=== PATIENT | female | born 1995 | race Caucasian/White ===

== ENCOUNTER 2019-06-16 19:44 | Emergency (ER) | payer OTHER ==
--- NOTE | 2019-06-16 20:09 | ER Document Report ---
ED Medical Screen (RME) - General Chief Complaint: Numbness Stated Complaint: NUMBNESS RIGHT SIDE, DIZZINESS, RASH Time Seen by Provider: 06/16/19 20:06 Primary Care Provider: GARCIA ANDERSON MD [Primary Care Provider] - Follow up as needed Mode of Arrival: Ambulatory Information source: Patient Notes: 23-year-old female presents to ED for complaint of numbness to her right arm and leg and side for the last 4 days intermittently. She states she is still able to walk and do everything is just the sometimes it feels numb and sometimes it feels like her legs going out from under her. She states she also has had stiffness to both sides of her jaw. She states she developed a red flat rash to it is painful to be touched to the back of both legs yesterday. She states today when she was driving home she had a period of dizziness where she had to pull up hand and then she was okay when she was able to drive the rest the way home. She states she does not have any past medical history of anything she has had surgery for ganglion cyst. She denies smoking drinking or doing any drugs. 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 I have greeted and performed a rapid initial assessment of this patient. A comprehensive ED assessment and evaluation of the patient, analysis of test results and completion of medical decision making process will be conducted by an additional ED providers. TRAVEL OUTSIDE OF THE [place] IN LAST 30 DAYS: No - Related Data Allergies/Adverse Reactions: No Known Allergies Allergy (Unverified 06/16/19 19:48) Physical Exam - Vital signs Vitals: Temp Pulse Resp BP Pulse Ox 98.5 F 87 20 138/80 H 100 06/16/19 19:49 06/16/19 19:49 06/16/19 19:49 06/16/19 19:49 06/16/19 19:49 Course - Vital Signs Vital signs: Temp Pulse Resp BP Pulse Ox 98.5 F 87 20 138/80 H 100 06/16/19 19:49 06/16/19 19:49 06/16/19 19:49 06/16/19 19:49 06/16/19 19:49 Doctor's Discharge - Discharge Referrals: GARCIA ANDERSON MD [Primary Care Provider] - Follow up as needed
[2019-06-16 20:29] LABS: APPEARANCE,URINE CLEAR; BILIRUBIN,URINE NEGATIVE (NEGATIVE); COLOR,URINE YELLOW; GLUCOSE, URINE NEGATIVE (NEGATIVE); KETONES,URINE NEGATIVE (NEGATIVE); LEUKOCYTE ESTERASE,URINE NEGATIVE (NEGATIVE); NITRITE,URINE NEGATIVE (NEGATIVE); PROTEIN,URINE NEGATIVE (NEGATIVE); URINE SPECIFIC GRAVITY 1.021; UROBILINOGEN,URINE NEGATIVE mg/dL (<2.0)
--- NOTE | 2019-06-16 20:34 | ER Document Report ---
ED General - General Mode of Arrival: Ambulatory TRAVEL OUTSIDE OF THE [place] IN LAST 30 DAYS: No <RITA ROTHMAN - Last Filed: 06/17/19 06:51> <KEYLA VALLE - Last Filed: 06/18/19 02:01> - General Chief Complaint: Numbness Stated Complaint: NUMBNESS RIGHT SIDE, DIZZINESS, RASH Time Seen by Provider: 06/16/19 20:06 Primary Care Provider: GARCIA ANDERSON MD [ACTIVE STAFF] - Follow up as needed Notes: Patient is a 23-year-old female that comes emergency department for chief complaint of symptoms that have been going on for the past 4 days, she states that she is getting intermittent tingling sensations in her right hand and sometimes in her right leg and foot, she also states that when she was driving home from work she suddenly felt lightheaded and her vision got really blurry, this did subside. She did not get diaphoresis, chest pain, shortness of breath, nausea or vomiting. She also states that over the past day she has broken out into a reddish rash on the back of her lower legs that is not itchy but is slig htly tender to touch. Denies headache, fever, history of the same. She takes no daily medications. Only past medical history reported is right ganglion cyst removal. She denies smoking, alcohol, recreational drugs. Significant other at bedside. (RITA ROTHMAN) - Related Data Allergies/Adverse Reactions: No Known Allergies Allergy (Unverified 06/16/19 19:48) Past Medical History - General Information source: Patient - Social History Smoking Status: Never Smoker Chew tobacco use (# tins/day): No Frequency of alcohol use: None Drug Abuse: None Lives with: Family Family History: Reviewed & Not Pertinent Patient has suicidal ideation: No Patient has homicidal ideation: No - Medical History Medical History: Negative Renal/ Medical History: Denies: Hx Peritoneal Dialysis Past Surgical History: Reports: Hx Orthopedic Surgery - Right ganglion cyst kimmy gaudencio <RITA ROTHMAN - Last Filed: 06/17/19 06:51> Review of Systems - Review of Systems Constitutional: See HPI EENT: No symptoms reported Cardiovascular: See HPI Respiratory: No symptoms reported Gastrointestinal: No symptoms reported Genitourinary: No symptoms reported Female Genitourinary: No symptoms reported Musculoskeletal: No symptoms reported Skin: See HPI Hematologic/Lymphatic: No symptoms reported Neurological/Psychological: See HPI <RITA ROTHMAN - Last Filed: 06/17/19 06:51> Physical Exam <RITA ROTHMAN - Last Filed: 06/17/19 06:51> - Vital signs Vitals: Temp Pulse Resp BP Pulse Ox 98.5 F 87 20 138/80 H 100 06/16/19 19:49 06/16/19 19:49 06/16/19 19:49 06/16/19 19:49 06/16/19 19:49 - Notes Notes: GENERAL: Alert, interacts well. No acute distress. HEAD: Normocephalic, atraumatic. EYES: Pupils equal, round, and reactive to light. Extraocular movements intact. ENT: Oral mucosa moist, tongue midline. Oropharynx unremarkable. Airway patent. Nares patent, no nasal septal hematoma NECK: Full range of motion. Supple. Trachea midline. LUNGS: Clear to auscultation bilaterally, no wheezes, rales, or rhonchi. No respiratory distress. HEART: Regular rate and rhythm. No murmur ABDOMEN: Soft, non-tender. Non-distended. Bowel sounds present in all 4 quadrants. GENITOURINARY: Deferred EXTREMITIES: Moves all 4 extremities spontaneously. No edema, normal radial and dorsalis pedis pulses bilaterally. No cyanosis. BACK: no cervical, thoracic, lumbar midline tenderness. No saddle anesthesia, normal distal neurovascular exam. Moves all extremities in full range of motion. NEUROLOGICAL: Alert and oriented x3. Normal speech. 5 out of 5 strength in all extremities. Distal sensation intact. Cranial nerves II through XII grossly intact. PSYCH: Normal affect, normal mood. SKIN: Symmetrical erythematous macular rash over the posterior ankles extending slightly of the legs. No bulla, pustules, sloughing, induration, fluctuance. Minimally tender only by report but does not appear to be tender. (RITA ROTHMAN) Course - Laboratory Result Diagrams: 06/16/19 20:40 06/16/19 20:40 <RITA ROTHMAN - Last Filed: 06/17/19 06:51> - Laboratory Result Diagrams: 06/16/19 20:40 06/16/19 20:40 <KEYLA VALLE - Last Filed: 06/18/19 02:01> - Re-evaluation Re-evalutation: Patient has a confusing presentation. She is smiling, talkative, well- appearing. She has no neurological deficit on my exam. She has no current paresthesias. As result I do not suspect brain lesion, intracranial hemorrhage, or even something wrong with the neck causing compression. However she does have a symmetrical rash that is erythematous and mildly tender over the posterio r leg distally. There are no papules, it is not itchy, no pustules, no severe tenderness, no swelling of the leg otherwise. Redness is there but it is not shiny erythema. In addition to this patient states she felt like she was passing out earlier. EKG unremarkable with unremarkable SC interval and sinus rhythm. No ischemic findings. CBC, chemistry unremarkable, urinalysis unremarkable, test negative, even the ESR is unremarkable. Patient denies tick bite, exposures, or any history of the same. She does not have a fever, leukocytosis, or headache. Does not appear to be infectious in nature. Possible contact over the ankles causing symptoms, I did discuss with Dr. Valle who evaluated at bedside, discussed with patient, decision was made to start her on steroids for the next several day to see if this helps resolve her intermittent paresthesias and her rash, she will follow closely, she return if she worsens. Patient states satisfaction and agreement. (RITA ROTHMAN) 06/18/19 01:59 Patient was seen and examined as requested by [facility]. Patient is a 23-year-old female who presented with complaints of dizziness, paresthesias and a symmetric rash to her lower extremities bilaterally. 06/18/19 02:00 ENERAL: Alert, interacts well. No acute distress. HEAD: Normocephalic, atraumatic. EYES: Pupils equal, round, and reactive to light. Extraocular movements intact. ENT: Oral mucosa moist, tongue midline. Oropharynx unremarkable. Airway patent. Nares patent, no nasal septal hematoma NECK: Full range of motion. Supple. Trachea midline. LUNGS: Clear to auscultation bilaterally, no wheezes, rales, or rhonchi. No respiratory distress. HEART: Regular rate and rhythm. No murmur ABDOMEN: Soft, non-tender. Non-distended. Bowel sounds present in all 4 quadrants. GENITOURINARY: Deferred EXTREMITIES: Moves all 4 extremities spontaneously. No edema, normal radial and dorsalis pedis pulses bilaterally. No cyanosis. BACK: no cervical, thoracic, lumbar midline tenderness. No saddle anesthesia, normal distal neurovascular exam. Moves all extremities in full range of motion. NEUROLOGICAL: Alert and oriented x3. Normal speech. 5 out of 5 strength in all extremities. Distal sensation intact. Cranial nerves II through XII grossly intact. PSYCH: Normal affect, normal mood. SKIN: Symmetrical erythematous macular blanching rash over the posterior ankles extending slightly of the legs. No bulla, pustules, sloughing, induration, fluctuance. Minimally tender only by report but does not appear to be tender. Patient is without leukocytosis, fever. She does not appear toxic or dehydrated. We will prescribe steroids and advised outpatient follow-up with primary care physician. (KEYLA VALLE) - Vital Signs Vital signs: Temp Pulse Resp BP Pulse Ox 99.4 F 77 14 106/70 98 06/17/19 00:27 06/17/19 00:27 06/17/19 00:27 06/17/19 00:27 06/17/19 00:27 Discharge <RITA ROTHMAN - Last Filed: 06/17/19 06:51> <KEYLA VALLE - Last Filed: 06/18/19 02:01> - Discharge Clinical Impression: Light-headedness, Paresthesias, Rash Condition: Stable Disposition: HOME, SELF-CARE Additional Instructions: Your work-up is reassuring. No concerning findings are noted on your evaluation although the exact cause of your dizziness, paresthesias (tingling), and even the rash is uncertain. The rash does not appear to be infectious, you have been placed on a steroid dose for the next few days. I do recommend close primary care follow-up for additional evaluation and management. Return if you worsen including spreading redness, developing pain, fever, passing out, or any other concerning or worsening symptoms. Prescriptions: Prednisone [Deltasone 20 mg Tablet] 2 tab PO DAILY 4 Days #8 tablet Forms: Return to Work Referrals: GARCIA ANDERSON MD [ACTIVE STAFF] - Follow up as needed
[2019-06-16 20:56] LABS: ABSOLUTE BASOPHILS # (AUTO) 0.1 10^3/uL (0.0-0.2); ABSOLUTE EOSINOPHILS # (AUTO) 0.5 10^3/uL (0.0-0.6); ABSOLUTE LYMPHOCYTES (AUTO) 3.4 10^3/uL (0.5-4.7); ABSOLUTE MONOCYTES (AUTO) 0.6 10^3/uL (0.1-1.4); ABSOLUTE NEUT (AUTO) 3.9 10^3/uL (1.7-8.2); BASOPHILS % (AUTO) 0.8 % (0-2); EOSINOPHILS % (AUTO) 5.9 % (0-6); HEMATOCRIT 40.9 % (36.0-47.0); HEMOGLOBIN 13.8 g/dL (12.0-15.5); LYMPHOCYTES % (AUTO) 40.2 % (13-45); MEAN CORPUSCULAR HEMOGLOBIN 28.9 pg (27.0-33.4); MEAN CORPUSCULAR HGB CONC 33.8 g/dL (32.0-36.0); MEAN CORPUSCULAR VOLUME 85 fl (80-97); MONOCYTES % (AUTO) 7.5 % (3-13); PLATELET COUNT 232 10^3/uL (150-450); RED BLOOD COUNT 4.79 10^6/uL (3.72-5.28); RED CELL DISTRIBUTION WIDTH 12.8 % (11.5-14.0); SEGMENTED NEUTROPHILS % (AUTO) 45.6 % (42-78); TOTAL CELLS COUNTED % (AUTO) 100 %; WHITE BLOOD COUNT 8.5 10^3/uL (4.0-10.5)
[2019-06-16 21:16] LABS: ALBUMIN 4.7 g/dL (3.5-5.0); ALKALINE PHOSPHATASE 44 U/L (38-126); ANION GAP 11 (5-19); ASPARTATE AMINO TRANSFERASE 25 U/L (14-36); BILIRUBIN,DIRECT 0.3 mg/dL (0.0-0.4); BILIRUBIN,TOTAL 0.4 mg/dL (0.2-1.3); BLOOD UREA NITROGEN 11 mg/dL (7-20); CALCIUM 9.8 mg/dL (8.4-10.2); CARBON DIOXIDE 24 mmol/L (22-30); CHLORIDE 103 mmol/L (98-107); CREATINE KINASE 82 U/L (30-135); GLUCOSE 109 mg/dL (75-110); POTASSIUM 3.9 mmol/L (3.6-5.0); TOTAL PROTEIN 7.7 g/dL (6.3-8.2)
[2019-06-16] MEDS ORDERED: PREDNISONE 20 MG TABLET PO ONE (23:41)
[2019-06-17 00:28] VITALS: BP 112/75
--- NOTE | 2019-06-17 09:34 | EKG REPORT ---
SEVERITY:- DEFECTIVE ECG - BASELINE ARTIFACT.SUSPECT SINUS RHYTHM.REPEAT EKG : Confirmed by: Corie Henry MD 17-Jun-2019 09:33:47
== END 2019-06-17 00:30 | disposition home or self-care (01) ==
LOC: ER 19:44
DX: R42 Dizziness and giddiness (principal); R21 Rash and other nonspecific skin eruption; R20.2 Paresthesia of skin
CPT/HCPCS: 93005; 99284; 36415; 82550; 84703; 85025; 85652; 80053; 81001; 93010; J7512

== ENCOUNTER 2019-06-17 15:24 | Emergency (ER) | payer OTHER ==
--- NOTE | 2019-06-17 15:47 | ER Document Report ---
ED Medical Screen (RME) - General Chief Complaint: General Weakness Stated Complaint: WEAKNESS Time Seen by Provider: 06/17/19 15:40 Mode of Arrival: Ambulatory Information source: Patient Notes: 23-year-old female presented to ED for syncopal episode at work again today. She was seen yesterday for numbness to one side of her body and everything feeling numb and tingling. She did have a complete exam complete blood work and everything was negative according to the patient. She states she was sent home she went to work she almost passed out at work again today the boss sent her home states that when she got home she passed out again. I have greeted and performed a rapid initial assessment of this patient. A comprehensive ED assessment and evaluation of the patient, analysis of test results and completion of medical decision making process will be conducted by an additional ED providers. TRAVEL OUTSIDE OF THE [place] IN LAST 30 DAYS: No - Related Data Allergies/Adverse Reactions: No Known Allergies Allergy (Unverified 06/16/19 19:48) Past Medical History Renal/ Medical History: Denies: Hx Peritoneal Dialysis Past Surgical History: Reports: Hx Orthopedic Surgery - Right ganglion cyst removal
[2019-06-17 16:29] LABS: ABSOLUTE LYMPHOCYTES (AUTO) 2.3 10^3/uL (0.5-4.7); ABSOLUTE MONOCYTES (AUTO) 0.7 10^3/uL (0.1-1.4); ABSOLUTE NEUT (AUTO) 9.6 10^3/uL (1.7-8.2); BASOPHILS % (AUTO) 0.1 % (0-2); EOSINOPHILS % (AUTO) 0.4 % (0-6); HEMATOCRIT 42.9 % (36.0-47.0); HEMOGLOBIN 14.5 g/dL (12.0-15.5); MEAN CORPUSCULAR HEMOGLOBIN 28.8 pg (27.0-33.4); MEAN CORPUSCULAR HGB CONC 33.8 g/dL (32.0-36.0); MEAN CORPUSCULAR VOLUME 85 fl (80-97); MONOCYTES % (AUTO) 5.3 % (3-13); PLATELET COUNT 267 10^3/uL (150-450); RED BLOOD COUNT 5.03 10^6/uL (3.72-5.28); RED CELL DISTRIBUTION WIDTH 12.7 % (11.5-14.0); SEGMENTED NEUTROPHILS % (AUTO) 76.2 % (42-78); TOTAL CELLS COUNTED % (AUTO) 100 %; WHITE BLOOD COUNT 12.6 10^3/uL (4.0-10.5)
[2019-06-17 16:31] LABS: APPEARANCE,URINE SLIGHTLY-CLOUDY; BILIRUBIN,URINE NEGATIVE (NEGATIVE); COLOR,URINE YELLOW; GLUCOSE, URINE NEGATIVE (NEGATIVE); KETONES,URINE 20 mg/dL (NEGATIVE); LEUKOCYTE ESTERASE,URINE NEGATIVE (NEGATIVE); NITRITE,URINE NEGATIVE (NEGATIVE); PROTEIN,URINE NEGATIVE (NEGATIVE); URINE SPECIFIC GRAVITY 1.026; UROBILINOGEN,URINE NEGATIVE mg/dL (<2.0)
[2019-06-17] MEDS ORDERED: NORMAL SALINE 1000 ML 1,000 ML IV ONE (16:40)
--- NOTE | 2019-06-17 16:44 | ER Document Report ---
ED General - General Chief Complaint: General Weakness Stated Complaint: WEAKNESS Time Seen by Provider: 06/17/19 15:40 Primary Care Provider: BRENTON CHOW MD [ACTIVE STAFF] - Follow up in 3-5 days Mode of Arrival: Ambulatory Notes: Patient is a 23 year old that presents to the emergency department for chief complaint of syncopal episode and paresthesias. Patient states she has been having a few syncopal episodes, she was seen in the emergency department yesterday for the same, she had another episode today, she is had some tingling on her left side, and around her lips, and wanted to be reevaluated. She states she thinks has been drinking plenty of fluids, she was driving her car when she initially felt like she may pass out, and then when she got the car she did pass out. She does not recall having episodes like this in the past. She denies having any associated chest pain, palpitations, but does have a prodrome of feeling nausea, and lightheadedness before this occurs. She is had some vertigo and room spinning type symptoms as well. Denies any ear pain or ringing. Past Medical History: Denies chronic medical conditions Past Surgical History: Denies surgical history Social History: Denies tobacco, alcohol or drug use. Family History: Reviewed and noncontributory for presenting illness Allergies: Reviewed, see documented allergy list. REVIEW OF SYSTEMS: Other than noted above, the 12 point review of systems was reviewed with the patient and were negative, all pertinent findings are included in the HPI. PHYSICAL EXAMINATION: Vital signs reviewed, nursing noted reviewed. GENERAL: Well-appearing, well-nourished and in no acute distress. HEAD: Atraumatic, normocephalic. EYES: Eyes appear normal, extraocular movements intact, sclera anicteric, conjunctiva are normal. ENT: nares patent, oropharynx clear without exudates. Moist mucous membranes. NECK: Normal range of motion, supple without lymphadenopathy LUNGS: Breath sounds clear to auscultation bilaterally and equal. No wheezes rales or rhonchi. HEART: Regular rate and rhythm without murmurs ABDOMEN: Soft, nontender, normoactive bowel sounds. No rebound, guarding, or rigidity. No masses appreciated. EXTREMITIES: Nontender, good range of motion, no pitting or edema. NEUROLOGICAL: No focal neurological deficits. Moves all extremities spontaneously Motor and sensory grossly intact on exam. PSYCH: Normal mood, normal affect. SKIN: Warm, Dry, normal turgor, no rashes or lesions noted on exposed skin TRAVEL OUTSIDE OF THE [place] IN LAST 30 DAYS: No - Related Data Allergies/Adverse Reactions: No Known Allergies Allergy (Unverified 06/16/19 19:48) Past Medical History - General Information source: Patient - Social History Smoking Status: Never Smoker Frequency of alcohol use: None Drug Abuse: None Family History: Reviewed & Not Pertinent Patient has suicidal ideation: No Patient has homicidal ideation: No Renal/ Medical History: Denies: Hx Peritoneal Dialysis Past Surgical History: Reports: Hx Orthopedic Surgery - Right ganglion cyst removal Physical Exam - Vital signs Vitals: Pulse Resp BP Pulse Ox 94 16 128/78 H 99 06/17/19 15:39 06/17/19 15:39 06/17/19 15:39 06/17/19 15:39 Course - Re-evaluation Re-evalutation: Patient seen and examined vital signs reviewed. Laboratory data and/or imaging were ordered as appropriate for the patient's presenting symptoms and complaint, with consideration of any critical or life threatening conditions that may be associated with their obtained history and exam as noted above. Patient was treated with IV fluids Results were reviewed when available and demonstrated unremarkable work-up, EKG was unremarkable, no dysrhythmias, no lecture light abnormalities, negative chest x-ray The patient was re-evaluated and was stable Evaluation was most consistent with syncopal episodes, likely benign, vasovagal versus orthostasis, advised to follow-up with cardiology however, she may need a Holter monitor, patient was agreeable with this plan of care and discharged to home. Results were discussed with the patient at this point, after careful consideration I feel that that patient can be discharged from the emergency department, the patient was educated treatments and reasons to return to the emergency department based on their presumed diagnosis as noted above, they were advised to followup with a primary care physician in 2-3 days. Patient was agreeable to plan of care. *Note is created using voice recognition software and may contain spelling, syntax or grammatical errors. Laboratory 06/17/19 06/17/19 06/17/19 16:00 16:00 16:00 WBC 12.6 H RBC 5.03 Hgb 14.5 Hct 42.9 MCV 85 MCH 28.8 MCHC 33.8 RDW 12.7 Plt Count 267 Lymph % (Auto) 18.0 [place] % (Auto) 5.3 Eos % (Auto) 0.4 Baso % (Auto) 0.1 Absolute Neuts (auto) 9.6 H Absolute Lymphs (auto) 2.3 Absolute Monos (auto) 0.7 Absolute Eos (auto) 0.0 Absolute Basos (auto) 0.0 Seg Neutrophils % 76.2 Sodium 138.6 Potassium 3.9 Chloride 102 Carbon Dioxide 23 Anion Gap 14 BUN 11 Creatinine 0.66 Est GFR ( Amer) > 60 Est GFR (MDRD) Non-Af > 60 Glucose 91 POC Glucose Calcium 10.1 Total Bilirubin 0.6 Direct Bilirubin 0.2 Neonat Total Bilirubin Not Reportable Neonat Direct Bilirubin Not Reportable Neonat Indirect Bili Not Reportable AST 23 ALT 14 Alkaline Phosphatase 53 Creatine Kinase 69 Total Protein 7.8 Albumin 4.8 Lipase 53.3 TSH Free T4 Free T3 pg/mL Serum HCG, Qual NEGATIVE Urine Color Urine Appearance Urine pH Ur Specific [place] Urine Protein Urine Glucose (UA) Urine Ketones Urine Blood Urine Nitrite Urine Bilirubin Urine Urobilinogen Ur Leukocyte Esterase Urine WBC (Auto) Urine RBC (Auto) Urine Bacteria (Auto) Squamous Epi Cells Auto Urine Mucus (Auto) Urine Ascorbic Acid Urine Opiates Screen Urine Methadone Screen Ur Barbiturates Screen Ur Phencyclidine Scrn Ur Amphetamines Screen U Benzodiazepines Scrn Urine Cocaine Screen U Marijuana (THC) Screen 06/17/19 06/17/19 06/17/19 16:00 16:00 16:00 WBC RBC Hgb Hct MCV MCH MCHC RDW Plt Count Lymph % (Auto) [place] % (Auto) Eos % (Auto) Baso % (Auto) Absolute Neuts (auto) Absolute Lymphs (auto) Absolute Monos (auto) Absolute Eos (auto) Absolute Basos (auto) Seg Neutrophils % Sodium Potassium Chloride Carbon Dioxide Anion Gap BUN Creatinine Est GFR ( Amer) Est GFR (MDRD) Non-Af Glucose POC Glucose Calcium Total Bilirubin Direct Bilirubin Neonat Total Bilirubin Neonat Direct Bilirubin Neonat Indirect Bili AST ALT Alkaline Phosphatase Creatine Kinase Total Protein Albumin Lipase TSH 0.74 Free T4 0.90 Free T3 pg/mL 2.67 L Serum HCG, Qual Urine Color YELLOW Urine Appearance SLIGHTLY-CLOUDY Urine pH 5.0 Ur Specific [place] 1.026 Urine Protein NEGATIVE Urine Glucose (UA) NEGATIVE Urine Ketones 20 H Urine Blood NEGATIVE Urine Nitrite NEGATIVE Urine Bilirubin NEGATIVE Urine Urobilinogen NEGATIVE Ur Leukocyte Esterase NEGATIVE Urine WBC (Auto) 2 Urine RBC (Auto) 2 Urine Bacteria (Auto) TRACE Squamous Epi Cells Auto 5 Urine Mucus (Auto) OCC Urine Ascorbic Acid NEGATIVE Urine Opiates Screen NEGATIVE Urine Methadone Screen NEGATIVE Ur Barbiturates Screen NEGATIVE Ur Phencyclidine Scrn NEGATIVE Ur Amphetamines Screen NEGATIVE U Benzodiazepines Scrn NEGATIVE Urine Cocaine Screen NEGATIVE U Marijuana (THC) Screen NEGATIVE 06/17/19 17:52 WBC RBC Hgb Hct MCV MCH MCHC RDW Plt Count Lymph % (Auto) [place] % (Auto) Eos % (Auto) Baso % (Auto) Absolute Neuts (auto) Absolute Lymphs (auto) Absolute Monos (auto) Absolute Eos (auto) Absolute Basos (auto) Seg Neutrophils % Sodium Potassium Chloride Carbon Dioxide Anion Gap BUN Creatinine Est GFR ( Amer) Est GFR (MDRD) Non-Af Glucose POC Glucose 89 Calcium Total Bilirubin Direct Bilirubin Neonat Total Bilirubin Neonat Direct Bilirubin Neonat Indirect Bili AST ALT Alkaline Phosphatase Creatine Kinase Total Protein Albumin Lipase TSH Free T4 Free T3 pg/mL Serum HCG, Qual Urine Color Urine Appearance Urine pH Ur Specific [place] Urine Protein Urine Glucose (UA) Urine Ketones Urine Blood Urine Nitrite Urine Bilirubin Urine Urobilinogen Ur Leukocyte Esterase Urine WBC (Auto) Urine RBC (Auto) Urine Bacteria (Auto) Squamous Epi Cells Auto Urine Mucus (Auto) Urine Ascorbic Acid Urine Opiates Screen Urine Methadone Screen Ur Barbiturates Screen Ur Phencyclidine Scrn Ur Amphetamines Screen U Benzodiazepines Scrn Urine Cocaine Screen U Marijuana (THC) Screen Chest X-Ray 06/17/19 16:40 IMPRESSION: NO ACUTE DISEASE. - Vital Signs Vital signs: Temp Pulse Resp BP Pulse Ox 98.3 F 112 H 16 110/57 L 99 06/17/19 18:55 06/17/19 18:55 06/17/19 15:39 06/17/19 18:55 06/17/19 18:55 - Laboratory Result Diagrams: 06/17/19 16:00 06/17/19 16:00 Laboratory results interpreted by me: 06/17/19 06/17/19 06/17/19 16:00 16:00 16:00 WBC 12.6 H Absolute Neuts (auto) 9.6 H Free T3 pg/mL 2.67 L Urine Ketones 20 H - EKG Interpretation by Me Additional EKG results interpreted by me: EKG demonstrates sinus rhythm with a ventricular rate of 88 bpm, normal axis, normal intervals, no evidence of acute ischemia in this EKG, compared with prior EKG from 06/16/2019. Discharge - Discharge Clinical Impression: Syncope Qualifiers: Syncope type: unspecified Qualified Code(s): R55 - Syncope and collapse Condition: Stable Disposition: HOME, SELF-CARE Instructions: Syncopal Episode ([facility]) Additional Instructions: Please follow-up with a implant coordinator, you may have to go through [facility], to get a referral, drink plenty of fluids, and take your time when changing positions from lying to sitting to standing. Referrals: BRENTON CHOW MD [ACTIVE STAFF] - Follow up in 3-5 days
[2019-06-17 16:45] LABS: ALBUMIN 4.8 g/dL (3.5-5.0); ALKALINE PHOSPHATASE 53 U/L (38-126); ANION GAP 14 (5-19); ASPARTATE AMINO TRANSFERASE 23 U/L (14-36); BILIRUBIN,DIRECT 0.2 mg/dL (0.0-0.4); BILIRUBIN,TOTAL 0.6 mg/dL (0.2-1.3); BLOOD UREA NITROGEN 11 mg/dL (7-20); CALCIUM 10.1 mg/dL (8.4-10.2); CARBON DIOXIDE 23 mmol/L (22-30); CHLORIDE 102 mmol/L (98-107); CREATINE KINASE 69 U/L (30-135); GLUCOSE 91 mg/dL (75-110); POTASSIUM 3.9 mmol/L (3.6-5.0); TOTAL PROTEIN 7.8 g/dL (6.3-8.2); URINE AMPHETAMINES SCREEN NEGATIVE; URINE BARBITURATES SCREEN NEGATIVE; URINE BENZODIAZEPINES SCREEN NEGATIVE; URINE COCAINE SCREEN NEGATIVE; URINE MARIJUANA (THC) SCREEN NEGATIVE; URINE METHADONE SCREEN NEGATIVE; URINE PHENCYCLIDINE SCREEN NEGATIVE
[2019-06-17 17:04] LABS: FREE T3 2.67 pg/mL (2.77-5.27); FREE T4 (FREE THYROXINE) 0.9 ng/dL (0.78-2.19)
[2019-06-17 17:18] LABS: THYROID STIMULATING HORMONE 0.74 uIU/mL (0.47-4.68)
--- NOTE | 2019-06-17 17:54 | RADIOLOGY REPORT (SQ) ---
EXAM DESCRIPTION: CHEST SINGLE VIEW COMPLETED DATE/TIME: 06/17/2019 5:32 pm REASON FOR STUDY: Weakness. Syncope. Numbness and tingling upper and lower extremities. COMPARISON: None. EXAM PARAMETERS: NUMBER OF VIEWS: One view. TECHNIQUE: Single frontal radiographic view of the chest acquired. RADIATION DOSE: NA LIMITATIONS: None. FINDINGS: LUNGS AND PLEURA: No acute infiltrates or effusions. MEDIASTINUM AND HILAR STRUCTURES: No masses. Contour normal. HEART AND VASCULAR STRUCTURES: Normal heart and pulmonary vasculature. BONES: No acute findings. HARDWARE: None in the chest. OTHER: No other significant finding. IMPRESSION: NO ACUTE DISEASE. TECHNICAL DOCUMENTATION: JOB ID: [id number] [email or web address]- All Rights Reserved Reading location - IP/workstation name: [email or web address]
[2019-06-17 19:01] VITALS: BP 110/57
--- NOTE | 2019-06-18 00:16 | EKG REPORT ---
SEVERITY:- NORMAL ECG - SINUS RHYTHM : Confirmed by: Corie Henry MD 18-Jun-2019 00:15:48
== END 2019-06-17 19:01 | disposition home or self-care (01) ==
LOC: ER 15:24
DX: R55 Syncope and collapse (principal); R53.1 Weakness
CPT/HCPCS: 93005; 99284; 96360; 36415; 84439; 82962; 82550; 83690; 84443; 84703; 85025; 80053; 81001; 80307; 84481; 71045; 93010; J7030

== ENCOUNTER 2020-04-23 15:39 | Emergency (ER) | payer OTHER ==
[2020-04-23] MEDS ORDERED: OXYCODONE-ACETAMINOPHEN 5-325 MG TABLET PO ONE (16:07)
[2020-04-23] MEDS ORDERED: AMOXICILLIN TR/POT CLAVULANATE 875-125 MG TAB PO ONE (16:08)
--- NOTE | 2020-04-23 16:10 | ER Document Report ---
ED Medical Screen (RME) - General Chief Complaint: Dog Bite Stated Complaint: DOG BITES ON ARMS AND LEGS Time Seen by Provider: 04/23/20 16:03 Notes: HPI: 24-year-old female presenting to the emergency department with multiple dog bites to the bilateral hands and left ankle. Patient states she has 5 dogs. States 4 of the dogs were attacking the fifth dog and she could not get them off of the dog so she laid on top of the dog to protect it. Patient states she is up-to-date on her vaccinations including tetanus and the dogs are up-to-date on their vaccinations. Patient was brought in by EMS. States she did receive fentanyl, states pain medicine is wearing off PHYSICAL EXAMINATION: Multiple bites to both hands and fingers are noted. The nail from the left fifth finger has been completely avulsed. The nail from the right fourth finger is partially avulsed. There are multiple lacerations noted on the finger some are superficial some are more extensive. Bruising and soft tissue swelling is noted. There is a very superficial scratch over the anterior left ankle that does not appear to have penetrated through the skin. I have greeted and performed a rapid initial assessment of this patient. A comprehensive ED assessment and evaluation of the patient, analysis of test results and completion of medical decision making process will be conducted by an additional ED providers. TRAVEL OUTSIDE OF THE [place] IN LAST 30 DAYS: No - Related Data Allergies/Adverse Reactions: No Known Allergies Allergy (Unverified 06/16/19 19:48) Past Medical History Renal/ Medical History: Denies: Hx Peritoneal Dialysis Past Surgical History: Reports: Hx Orthopedic Surgery - Right ganglion cyst removal Physical Exam - Vital signs Vitals: Temp Pulse Resp BP Pulse Ox 99.2 F 108 H 16 142/84 H 100 04/23/20 15:58 04/23/20 15:58 04/23/20 15:58 04/23/20 15:58 04/23/20 15:58 Course - Vital Signs Vital signs: Temp Pulse Resp BP Pulse Ox 99.2 F 108 H 16 142/84 H 100 04/23/20 15:58 04/23/20 15:58 04/23/20 15:58 04/23/20 15:58 04/23/20 15:58
--- NOTE | 2020-04-23 16:55 | RADIOLOGY REPORT (SQ) ---
EXAM DESCRIPTION: HAND BILATERAL 3 VIEWS IMAGES COMPLETED DATE/TIME: 04/23/2020 4:28 pm REASON FOR STUDY: dog bites COMPARISON: None. EXAM PARAMETERS: NUMBER OF VIEWS: Three views. TECHNIQUE: AP, lateral and oblique radiographic images acquired of the right and left hand. LIMITATIONS: Nonstandard radiographic positioning. Patient's fingers are superimposed on each other on the oblique and lateral films, patient hands are wrapped in gauze FINDINGS: MINERALIZATION: Normal. BONES: No acute fracture or dislocation. No gross bony puncture wounds from dog bite. JOINTS: No effusions. SOFT TISSUES: Dorsal right hand and left hand soft tissue swelling OTHER: No other significant finding. IMPRESSION: Limited study. No fracture TECHNICAL DOCUMENTATION: JOB ID: [id number] 2010 [employer] All Rights Reserved Reading location - IP/workstation name: [email or web address]
[2020-04-23] MEDS ORDERED: FENTANYL CITRATE INJ/PF 100 MCG/2 ML AMPUL IV ONE (20:01)
[2020-04-23] MEDS ORDERED: ONDANSETRON ODT 4 MG TAB (6 TAB/ER DISP) PO PRN (20:06)
[2020-04-23] MEDS ORDERED: ONDANSETRON HCL INJ/PF 4 MG/2 ML SDV IV ONE (20:07)
[2020-04-23] MEDS ORDERED: BUPIVACAINE HCL 0.5 % INJ/PF 30 ML SDV INJ ONE (20:13)
[2020-04-23] MEDS ORDERED: LIDOCAINE 1% INJ-PF (10 MG/ML) 30 ML SDV INJ ONE (20:14)
--- NOTE | 2020-04-23 20:16 | ER Document Report ---
ED Animal Bite - General Chief Complaint: Dog Bite Stated Complaint: DOG BITES ON ARMS AND LEGS Time Seen by Provider: 04/23/20 16:03 Primary Care Provider: COLLIN SALGADO MD [Primary Care Provider] - Follow up as needed Notes: Patient is a 24-year-old female who presents to the emergency department with a dog bite to her bilateral hands. Patient states that she is up-to-date on her immunizations. She states that her dogs are up-to-date on their immunizations. Patient denies any past medical history. She does not take any medication on a regular basis. TRAVEL OUTSIDE OF THE [place] IN LAST 30 DAYS: No - Related Data Allergies/Adverse Reactions: No Known Allergies Allergy (Unverified 06/16/19 19:48) Past Medical History - Social History Smoking Status: Unknown if Ever Smoked Family History: Reviewed & Not Pertinent Renal/ Medical History: Denies: Hx Peritoneal Dialysis Past Surgical History: Reports: Hx Orthopedic Surgery - Right ganglion cyst removal Review of Systems - Review of Systems Notes: REVIEW OF SYSTEMS: CONSTITUTIONAL : Denies recent illness. Denies recent unintentional weight loss. Denies fever, chills, or sweats. EENT: Denies eye, ear, throat, or mouth pain, discharge, or symptoms. Denies nasal or sinus congestion. CARDIOVASCULAR: Denies chest pain. RESPIRATORY: Denies shortness of breath, cough, congestion, difficulty breathing, or wheezing. GASTROINTESTINAL: Denies nausea, vomiting, and diarrhea. Denies abdominal pain. Denies constipation. GENITOURINARY: Denies difficulty urinating, burning, blood in urine, urgency or frequency. MUSCULOSKELETAL: Denies neck and back pain. See HPI. SKIN: See HPI. HEMATOLOGIC : Denies easy bruising or bleeding. LYMPHATIC: Denies swollen, painful, enlarged glands. NEUROLOGICAL: Denies no numbness or tingling denies weakness. Denies headache. Denies altered mental status. Denies alteration in speech. PSYCHIATRIC: Denies stress, anxiety, alteration in sleep patterns, or depression. All other systems reviewed and negative. Physical Exam - Vital signs Vitals: Temp Pulse Resp BP Pulse Ox 99.2 F 108 H 16 142/84 H 100 04/23/20 15:58 04/23/20 15:58 04/23/20 15:58 04/23/20 15:58 04/23/20 15:58 - Notes Notes: PHYSICAL EXAMINATION: GENERAL: Appears well, healthy, well-nourished, no acute distress. HEAD: Normocephalic, atraumatic. EYES: PERRL, conjunctiva normal, all extraocular movements intact, sclera nonicteric ENT: Moist mucous membranes. NECK: Supple, no noticeable swelling, redness, rash. Normal range of motion. LUNGS: Equal breath sounds bilaterally and clear to auscultation. No wheezes rales or rhonchi. CARDIOVASCULAR: S1-S2, regular rate, regular rhythm. Radial pulses 2+, normal. ABDOMEN: Normoactive bowel sounds. Soft, nontender, no guarding, no rebound tenderness, and no masses palpated. EXTREMITIES: Multiple puncture wounds to bilateral hands and wrists. Left fifth digit nail avulsion. Right fourth digit nail avulsion. NEUROLOGICAL: Moves all extremities upon command. Strength 5/5 in all extremities. PSYCH: Normal mood, normal affect. SKIN: Warm, dry. No rash, lesions, ulcerations noted. Normal skin turgor. Course - Re-evaluation Re-evalutation: 04/23/20 Patient was anesthetized with bupivacaine and lidocaine to her right webspaces between her third and fourth digit and her fourth and fifth digit. She tolerated this well. After I evaluated the patient's injuries, her fourth digit nail was not repairable. I ended up removing the nail. We will place the patient in splints to the left fifth digit and right fourth digit to protect the tip of the finger. All lacerations and puncture wounds were left open to help with drainage. Patient will be started on Augmentin. Patient is able to flex and extend all digits with no difficulty. Follow-up precautions were given. Verbal discharge instructions were given to the patient. They verbalized understanding. They are stable for discharge. - Vital Signs Vital signs: Temp Pulse Resp BP Pulse Ox 98.9 F 97 12 124/71 98 04/23/20 22:33 04/23/20 22:33 04/23/20 22:33 04/23/20 22:33 04/23/20 22:33 Procedures - Nail Trephanation/Removal Right 4th digit Nail Trepanation/Removal Location: Nail removal Betadine prep applied: No - Shur-Clens applied Sterile Dressing Applied: Yes Finger Splint: Yes Discharge - Discharge Clinical Impression: Dog bite, Fingernail avulsion, Puncture wound Condition: Stable Disposition: HOME, SELF-CARE Additional Instructions: Please monitor very closely for any signs of infection from your dog bite including spreading redness from the area, pus from the wound, or worsening pain. Clean the area twice daily with soap and water and then apply topical antibiotic ointment. Please take all the antibiotics that you were prescribed until they are gone. Use finger splints. Follow-up with your primary care provider. Prescriptions: Amoxicillin/Potassium Clav [Augmentin 875-125 Tablet] 1 tab PO BID #14 tab Hydrocodone/Acetaminophen [[place] 5-325 mg Tablet] 1 tab PO Q4H PRN #15 tablet PRN Reason: Forms: Return to Work Referrals: COLLIN SALGADO MD [Primary Care Provider] - Follow up as needed
[2020-04-23] MEDS ORDERED: HYDROCODONE/ACETAMINOPHEN 10-325 MG TABLET PO ONE (21:55)
[2020-04-23 22:34] VITALS: BP 124/71
== END 2020-04-23 22:34 | disposition home or self-care (01) ==
LOC: ER 15:39
DX: S61.452A Open bite of left hand, initial encounter (principal); S61.451A Open bite of right hand, initial encounter; S61.532A Puncture wound without foreign body of left wrist, initial encounter; S61.531A Puncture wound without foreign body of right wrist, initial encounter; S61.357A Open bite of left little finger with damage to nail, initial encounter; S61.354A Open bite of right ring finger with damage to nail, initial encounter; W54.0XXA Bitten by dog, initial encounter
CPT/HCPCS: 99283; 96374; 96375; 73130; 11730; J3490 ×3; J3010; J2405